=== PATIENT | male | born 1980 | race Caucasian/White ===

== ENCOUNTER 2018-08-21 13:00 | Emergency (ER) | END 2018-08-21 16:03 | disposition home or self-care (01) ==

== ENCOUNTER 2018-11-06 12:39 | Emergency (ER) | payer SELFPAY ==
[~2018-11-06] VITALS: Wt 92.6 kg
[~2018-11-06 12:39] MED LIST: IBUP-1542 PO
[2018-11-06 12:42] VITALS: BP 142/88; PULSE 99; RESP 18
[2018-11-06] MEDS ORDERED: ACETAMINOPHEN 325 MG TAB PO ONE (13:00)
--- NOTE | 2018-11-06 13:39 | ERD ---
ER Documentation Chief Complaint Chief Complaint SHANE X 6 DAYS HPI 38-year-old male presents with right-sided headache for the last 6 days. Denies any history of trauma. Complains of decreased visual acuity although this may have been before the headache started. Denies any fevers, weakness, restricted range of motion, bowel or bladder incontinence, additional deficits. Patient denies any previous history of migraines. ROS All systems reviewed and are negative except as per history of present illness. Medications Home Meds Active Scripts Ibuprofen* (Motrin*) 600 Mg Tab, 600 MG PO Q6, #20 TAB Prov:DEZ BURCH MD 11/06/18 Acetamin/Butalbital/Caffeine* (Fioricet*) [id number] Tab, 1 TAB PO Q6H PRN for PAIN, #15 TAB Prov:DEZ BURCH MD 11/06/18 Acetaminophen* (Tylophen*) 500 Mg Capsule, 1 CAP PO Q6H PRN for PAIN AND OR ELEVATED TEMP, #20 CAP Prov:DEZ BURHC MD 11/06/18 Ibuprofen* (Motrin*) 600 Mg Tab, 600 MG PO Q6H PRN for PAIN AND OR ELEVATED TEMP, #30 TAB Prov:VERO MARIE MD 08/21/18 Allergies Allergies: Coded Allergies: No Known Allergy (Unverified , 08/21/18) PMhx/Soc Hx Alcohol Use: Yes Hx Substance Use: No Hx Tobacco Use: No Smoking Status: Never smoker FmHx Family History: No diabetes, No coronary disease, No other Physical Exam Vitals Vital Signs Date Temp Pulse Resp B/P (MAP) Pulse Ox O2 O2 Flow FiO2 Time Delivery Rate 11/06/18 98.1 99 18 142/88 99 12:42 (106) Physical Exam Const: No acute distress Head: Atraumatic. Mildly reproducible pain on the right sikhism. No pulsatile masses. Eyes: Normal Conjunctiva. Eyes Chente and extraocular movements intact. ENT: Normal External Ears, Nose and Mouth. Neck: Full range of motion. No meningismus. Resp: Clear to auscultation bilaterally Cardio: Regular rate and rhythm, no murmurs Abd: Soft, non tender, non distended. Normal bowel sounds Skin: No petechiae or rashes Back: No midline or flank tenderness Ext: No cyanosis, or edema Neur: Awake and alert negative Romberg. No pronator drift. No appreciable focal neurologic deficits. Psych: Normal Mood and Affect Results 24 hrs Current Medications Medications Dose Sig/Ciera Start Time Status Last (Trade) Ordered Route PRN Stop Time Admin Dose Reason Admin 650 mg ONCE ONCE 11/06/18 DC 11/06/18 Acetaminophen PO 13:00 11/06/18 13:06 (Tylenol 13:01 Tab) Procedures/MDM Visual acuity diminished bilaterally. She has no visual field deficits. CT brain shows no acute abnormalities. Patient was amatory [id number] throughout the ER course. Patient presents with right-sided headache for the last 6 days. Doubt subarachnoid. There is no evidence of neurologic deficit, signs of meningitis. He does have decreased visual acuity which appears chronic and may be a cause of his headache due to eye strain. He is advised to see ophthalmology for refraction and further evaluation and treatment. In the meantime will treat with Tylenol and Fioricet and primary care follow-up and return precautions. The patient was stable with no new complaints during the ER course. Clinically, there is no current evidence to suggest meningitis, sepsis, acute abdomen, pneumonia, stroke, acute coronary syndrome, pulmonary embolism, aortic dissection or any other emergent condition appearing to require further evaluation or hospitalization. Patient counseled regarding my diagnostic impression and care plan. Prior to discharge all questions answered. Pt agrees with treatment plan and understands strict return precautions. Pt is instructed to follow up with primary care provider within 24-48 hours. Precautionary instructions provided including instructions to return to the ER if not improving or for any worsening or changing symptoms or concerns. Departure Diagnosis: Primary Impression: Headache Headache type: unspecified Headache chronicity pattern: unspecified pattern Intractability: not intractable Qualified Codes: R51 - Headache Condition: Stable DEZ BURCH MD Nov 06, 2018 13:39
[2018-11-06] MEDS ORDERED: ACET500C5 PO (13:41)
[2018-11-06] MEDS ORDERED: FIORICET PO (13:41)
[2018-11-06] MEDS ORDERED: IBUP-1542 PO (13:42)
== END 2018-11-06 14:03 | disposition home or self-care (01) ==
LOC: FTE 12:39
DX: R51 Headache (principal)
CPT/HCPCS: 70450